=== PATIENT | female | born 1960 | race Caucasian/White ===

== ENCOUNTER → 2019-08-10 | Outpatient (CLI) | payer OTHER | LOC: MRI 08:37 | DX: N83.201 Unspecified ovarian cyst, right side (principal); N83.202 Unspecified ovarian cyst, left side; K76.89 Other specified diseases of liver; N28.1 Cyst of kidney, acquired; R16.1 Splenomegaly, not elsewhere classified; N26.1 Atrophy of kidney (terminal) ==

== ENCOUNTER 2019-10-25 01:04 | Inpatient (IN) | payer OTHER ==
[~2019-10-25] VITALS: Ht 177.8 cm; Wt 86.2 kg
[2019-10-25] VITALS (33 sets, daily range): BP systolic 105–141; BP diastolic 42–62
[2019-10-25] MEDS ORDERED: LIPITOR80 MG PO (01:23)
[2019-10-25] MEDS ORDERED: NEURONTIN300 MG PO (01:24)
[2019-10-25] MEDS ORDERED: COZAAR 25 MG TA25 M2 PO (01:24)
[2019-10-25] MEDS ORDERED: CLONAZEPAM 0.50.5 M1 PO (01:24)
[2019-10-25] MEDS ORDERED: TRAZODONE HCL100 MG PO (01:25)
[2019-10-25] MEDS ORDERED: INDAPAMIDE2.5 MG PO (01:25)
[2019-10-25] MEDS ORDERED: SEROQUEL300 MG PO (01:26)
[2019-10-25] MEDS ORDERED: OXYBUTYNIN 5 MG5 M2 PO (01:27)
[2019-10-25] MEDS ORDERED: AMARYL4 MG PO (01:27)
[2019-10-25] MEDS ORDERED: TIROSINT88 MCG PO (01:28)
[2019-10-25] MEDS ORDERED: PANTOPRAZOLE SO40 M1 PO (01:28)
[2019-10-25] MEDS ORDERED: METFORMIN HCL500 M3 PO (01:28)
[2019-10-25] MEDS ORDERED: KLOR-CON M2020 MEQ PO (01:29)
[2019-10-25] MEDS ORDERED: ASA81BEC PO (01:29)
[2019-10-25] MEDS ORDERED: ABILIFY 5 MG TAB5 MG PO (01:29)
[2019-10-25] MEDS ORDERED: TRIPLE OMEGA C400 MG PO (01:30)
[2019-10-25] MEDS ORDERED: TIZANIDINE HCL4 M1 PO (01:30)
[2019-10-25] MEDS ORDERED: SUPER THERAVIT1 EACH PO (01:30)
[2019-10-25 02:07] LABS: ABSOLUTE NEUTROPHILS 9.6 thou/uL (1.4-8.2); BASOPHILS 0.4 % (0.0-2.0); EOSINOPHILS 0.3 % (0.0-3.0); HEMATOCRIT 38.3 % (37.0-47.0); HEMOGLOBIN 12.4 gm/dL (12.0-15.0); LYMPHOCYTES 10.2 % (24.0-44.0); MCH 27.9 pg (26.0-34.0); MCHC 32.5 g/dL (28.0-37.0); MCV 85.9 fL (80.0-100.0); MONOCYTES 3.5 % (1.0-8.0); PLATELET COUNT 171 thou/uL (150-400); POLYS 85.6 % (36.0-66.0); RBC 4.46 mil/uL (4.20-5.00); RDW 13.3 % (10.5-14.5); WBC 11.2 thou/uL (4.0-11.0)
[2019-10-25 02:19] LABS: ALBUMIN 3.7 g/dL (3.4-5.0); ANION GAP 13 mmol/L (7-16); BUN 76 mg/dL (7-18); CALCIUM 9.4 mg/dL (8.5-10.1); CHLORIDE 96 mmol/L (98-107); CO2 24 mmol/L (21-32); CREATININE 4.9 mg/dL (0.6-1.0); MAGNESIUM 1.9 mg/dL (1.8-2.4); SGOT 17 U/L (15-37); SGPT 17 U/L (30-65); SODIUM 133 mmol/L (136-145); TOTAL BILIRUBIN 0.5 mg/dL (<0.1-1.0); TOTAL PROTEIN 7.9 g/dL (6.4-8.2); TROPONIN-I <0.06 ng/mL (<0.06)
[2019-10-25 02:20] LABS: POTASSIUM 7.6 mmol/L (3.5-5.1)
[2019-10-25 02:21] LABS: GLUCOSE 29 mg/dL (74-106)
[2019-10-25 03:41] LABS: URINE BILIRUBIN NEGATIVE (Negative); URINE BLOOD NEGATIVE (Negative); URINE CLARITY CLEAR; URINE COLOR YELLOW; URINE GLUCOSE-RANDOM* NEGATIVE (Negative); URINE KETONES NEGATIVE (Negative); URINE NITRITE-REFLEX NEGATIVE (Negative); URINE PROTEIN (DIPSTICK) NEGATIVE (Negative); URINE UROBILINOGEN 0.2 E.U./dl (0.2-1.0)
[2019-10-25 03:42] LABS: URINE LEUKOCYTES-REFLEX 1+ (Negative)
[2019-10-25 03:46] LABS: SQUAMOUS 4-10 Moderate /LPF (0-3); URINE WBC-REFLEX 6-15 Few /HPF (0-5); WBC CLUMPS Moderate (None Seen)
[2019-10-25 03:47] LABS: BACTERIA-REFLEX 1-9 Few /HPF (None Seen); CRYSTALS None Seen /LPF (None Seen); HYALINE CASTS 0-3 Few /LPF (None Seen); MUCUS 0-3 Light strn/LPF (None Seen); URINE RBC 0-2 Rare /HPF (0-2)
--- NOTE | 2019-10-25 04:50 | NUR ---
Pt arrived ICU at this time. No s/sx of any distress indicates. She is being admit for Hyperkalemia, Hypoglycemia ,Weakness and EDNA. Denies of any CP or chest discomfort . SR with 1st degree AVB. BP stable. Last potassium was 8, will repeat lab again shortly. Hypoglycemic, continue D10 at 100 ml per hr. BS 90 mg/DL upon arrival. Hx obtained, assessment completed. Care plans are initiated, continue working toward goals.
--- NOTE | 2019-10-25 06:35 | NUR ---
CALL CONSULT TO ,AND ANSWEING SERVICE.
[2019-10-25 06:57] LABS: CALCIUM 9.3 mg/dL (8.5-10.1)
[2019-10-25 07:17] LABS: POTASSIUM 6.4 mmol/L (3.5-5.1)
[2019-10-25 08:21] LABS: CALCIUM 9.7 mg/dL (8.5-10.1)
[2019-10-25 08:35] LABS: POTASSIUM 6.3 mmol/L (3.5-5.1)
--- NOTE | 2019-10-25 10:03 | NUR ---
CONSULTED TO PLACE A CENTRAL LINE FOR A PATIENT NEEDING CRITICAL ACCESS IN THE ICU. ORDER OBTAINED AND CONSENT OBTAINED FROM THE SON AFTER DISCUSSING THE PROCEDURE WELL BENIFITS AND RISKS WITH THE PATIENT AND SON. THEY BOTH COMMUNICATED UNDERSTANDING. THE RIGHT JUGULAR VEIN WAS WIDLEY PATENT. A #6F TRIPLE LUMEN POWER INJECTABLE CENTRAL CATHETER WAS PLACED PER POLICY AFTER A BEDSIDE TIMEOUT WAS COMPLETED. THE LINE WAS 25CM AND ADVANCED WITHOUT DIFFICULTY. A STAT CHEST XRAY WAS ORDERED TO CONFIRM PLACEMENT.
[2019-10-25 11:24] LABS: URINE PROTEIN-RANDOM* 48.2 mg/dL (<11.9)
[2019-10-25 13:00] LABS: CALCIUM 8.9 mg/dL (8.5-10.1); CREATININE 5.1 mg/dL (0.6-1.0)
[2019-10-25 13:07] LABS: POTASSIUM 6.1 mmol/L (3.5-5.1)
--- NOTE | 2019-10-25 17:21 | NUR ---
INITIAL ASSESSMENT: Pt evaluated for d/c planning needs. Reviewed chart and spoke with nurse, pt and son. Pt is alert and oriented. Pt lives alone in senior apartment and was independent with ADL's prior to admission. Pt used walker or cane for ambulation. Pt has had [facility] after her hospitalization in June 2019. Pt is hopeful she will be able to return home on d/c from hospital. Will remain available to assist as needed.
--- NOTE | 2019-10-25 17:22 | EKG ---
[address] [place] [address] ELECTROCARDIOGRAM REPORT Name: ERIC RADER Room #: 240-P ADM IN M.R.#: [id number] Admission: 10/25/19 Attend Phys: Dalton Millan MD Discharge: Date of : 58 Report #: [id number] THIS REPORT FOR: //name// [facility] ED Test Date: 2019-10-25 Test Time: 02:04:11 Pat Name: ERIC RADER Department: Room: 240 Gender: F Optician: maikel abdi rn : 1960 Requested By: Sy Edmonds Order Number: [id number] MD: Mino Blanca Measurements Intervals Dixon Rate: 84 P: 40 ID: 202 QRS: -7 QRSD: 74 T: 15 QT: 349 QTc: 413 Interpretive Statements Sinus rhythm Borderline prolonged ID interval Low voltage, precordial leads No previous ECG available for comparison Electronically Signed On 10-25-2019 17:22:00 TEAM PHYSICIAN by Mino Blanca [email or web address] <ELECTRONICALLY SIGNED> By: Mino Blanca MD 10/25/19 1722 0204 3 Mino Blanca MD /SABINA
--- NOTE | 2019-10-25 19:15 | NUR ---
Report given to oncoming nurse. Pt alert and oriented. Continuous infusion of D10W at 40 ml/hr. Man, Fecal tube and central line placed this morning. Son here today and spoke with telephonic nurse case manager about potential needs at discharge.
[2019-10-26] VITALS (23 sets, daily range): BP systolic 90–131; BP diastolic 42–71
[2019-10-26 02:06] LABS: GLYCOHEMOGLOBIN (HGB A1C) 5.1 % (4.8-5.6)
[2019-10-26 04:41] LABS: CALCIUM 8.6 mg/dL (8.5-10.1); CREATININE 4.6 mg/dL (0.6-1.0); HEMATOCRIT 30.4 % (37.0-47.0); MCH 28.7 pg (26.0-34.0); MCHC 33.7 g/dL (28.0-37.0); MCV 85.1 fL (80.0-100.0); RBC 3.57 mil/uL (4.20-5.00); RDW 13.5 % (10.5-14.5); WBC 8.1 thou/uL (4.0-11.0)
[2019-10-26 04:42] LABS: POTASSIUM 6.2 mmol/L (3.5-5.1)
[2019-10-26 04:45] LABS: HEMOGLOBIN 10.2 gm/dL (12.0-15.0)
--- NOTE | 2019-10-26 05:30 | NUR ---
AOX3. DENIES PAIN. VSS. AFEBRILE. HOURLY BP DURING THE NIGHT. URINE OUTPUT GREATER THAN 30CC/HR. CRITICAL LAB VALUES COMMUNICATE TO DR. CODY. PT PROGRESSING TOWARDS GOALS. WILL CONITINUE TO MONITOR.
--- NOTE | 2019-10-26 10:48 | HC ---
[facility] [place] [address] CONSULTATION Name: ERIC RADER Room #: 240-P ADM IN M.R.#: [id number] Admission: 10/25/19 Attend Phys: Dalton Millan MD Discharge: Date of : 58 Report #: [id number] THIS REPORT FOR: //name// CC: Shereen Millan DATE OF SERVICE: 10/25/2019 ENDOCRINE CONSULTATION NOTE CONSULTING PHYSICIAN: Dr. Cobb. REASON FOR CONSULTATION: Hypoglycemia, type 2 diabetes mellitus. HISTORY OF PRESENT ILLNESS: This is a 59-year-old female patient whose medical background is significant for type 2 diabetes mellitus, hypertension, hyperlipidemia as well as hypothyroidism, who presented to the ER after experiencing severe hypoglycemia that was measured at 29 mg/dL. Simultaneously, she was found to be severely hyperkalemic and with advanced renal insufficiency, which prompted her admission for further care and monitoring. The patient notes that she has been diabetic for many years and that she is maintained on a regimen of metformin 1000 mg twice a day in addition to glimepiride 4 mg that she notes she takes as 1/2 twice a day. The patient notes that her blood glucose control is typically adequate, but that she had noted a tendency for lower blood glucose values recently. While she does not recall having had severe hypoglycemia such as the incident she presented with, she does report that she had fallen down 3 times just yesterday. The patient is not known to have diabetic neuropathy or retinopathy and does not have a prior knowledge of existing chronic kidney disease. The patient is not aware of heart disease. The patient is hypothyroid and is maintained on levothyroxine 88 mcg daily. She is also hypertensive and maintained on losartan 25 mg daily. The patient is known to have hyperlipidemia and is maintained on atorvastatin 80 mg at bedtime. REVIEW OF SYSTEMS: CONSTITUTIONAL: Weakness, tiredness, poor appetite, but not fever or chills. No major changes in body weight. HEENT: Negative for sinus pain, ear drainage. PULMONARY: Occasional shortness of breath and cough, but no hemoptysis. CARDIAC: No chest pain, palpitations, syncope or presyncope, or lower extremity swelling. GASTROINTESTINAL: Noted for occasional abdominal discomfort, nausea, but no vomiting. [facility] [address] [place] [address] CONSULTATION Name: ERIC RADER Room #: 240-P [facility] IN M.R.#: [id number] Admission: 10/25/19 Attend Phys: Dalton Millan MD Discharge: Date of : 58 Report #: [id number] NEUROLOGY: She had fallen down multiple times. Describes what sounds like sudden collapse features, but without loss of consciousness or seizure activity. SKIN: Negative for rash, ulceration, itching or other major abnormalities. Otherwise, review of systems noncontributory unless mentioned in HPI. PAST MEDICAL HISTORY: 1. Type 2 diabetes mellitus. 2. Hypertension. 3. Hyperlipidemia. 4. Hypothyroidism. 5. GERD. 6. Neuropathy. 7. Depression. 8. Anxiety. 9. Overactive bladder. OUTPATIENT MEDICATIONS: Include metformin 1000 mg twice a day, glimepiride 2 mg twice a day, atorvastatin 80 mg at bedtime, losartan 25 mg daily, clonazepam 1 tab t.i.d. p.r.n., gabapentin 300 mg t.i.d., indapamide 2.5 mg daily, trazodone 400 mg at bedtime, Seroquel 300 mg q.i.d., oxybutynin 5 mg daily, levothyroxine 88 mcg daily, pantoprazole 40 mg daily, Abilify 5 mg daily, aspirin 81 mg daily, KCl 20 mEq daily, multivitamin daily. ALLERGIES: SHE IS ALLERGIC TO LISINOPRIL, PIOGLITAZONE, AND CONTRAST DYE. FAMILY HISTORY: Noncontributory. SOCIAL HISTORY: The patient lives at an assisted living facility. Smokes half a pack to a pack per day. Denies use of alcohol. Smokes marijuana occasionally. Apparently lives at an assisted living residence. PHYSICAL EXAMINATION: GENERAL: female patient who is not in apparent pain or distress. VITAL SIGNS: Blood pressure is 105/45 mmHg, heart rate is 83 beats per minute, respirations 16 per minute, temperature 36.8 degrees Celsius. CONSTITUTIONAL: The patient appears comfortable not in apparent distress. HEENT: Anicteric sclerae. Intact extraocular motions. NECK: Supple, without JVD, carotid bruits or lymphadenopathy. I do not appreciate thyromegaly. CHEST: Noted for moderate air entry bilaterally with scattered rales, rhonchi. HEART: Regular rate and rhythm without murmurs or gallops. ABDOMEN: Soft and lax without tenderness or organomegaly. She has active bowel sounds. EXTREMITIES: Lower extremity exam is noted for trace ankle edema bilaterally. No skin breaks or ulcerations. Pedal pulses are appreciated. NEUROLOGIC: Awake, alert and oriented to time, place and person. The remainder [facility] [address] [place] [address] CONSULTATION Name: ERIC RADER Room #: 240-P ADM IN Wilver.#: [id number] Admission: 10/25/19 Attend Phys: Dalton Millan MD Discharge: Date of : 58 Report #: [id number] of her examination is noted for diminished sensory perception over both lower extremities. PSYCHIATRIC: Interactive, appropriate. Normal mood and affect. Normal thought process. LABORATORY RESULTS: Blood glucose on arrival was 23 mg/dL and has since got as high as 113 mg/dL most recently was at 78 mg/dL. Otherwise, sodium 134, potassium 6.3, was 8 on arrival, chloride 96, CO2 of 23, anion gap 15, BUN 75, creatinine 5, AST 17, total bilirubin 0.5, calcium 9.7, magnesium 1.9, alkaline phosphatase 61, ALT 17, total protein 7.9, albumin 3.7, EGFR 9. Troponin is negative. BNP 3834. White blood count 11.2, hemoglobin 12.4, hematocrit 38.3, platelets 171. TSH is 1.066. ASSESSMENT AND PLAN: 1. Hypoglycemia. The patient presented with severe hypoglycemia, which was documented at 23 mg/dL. There is reason to believe that she had more frequent issues with hypoglycemia over the past few weeks. This level of severity is indeed concerning for neurological as well as cardiovascular outcome. The patient and her son were counseled at length about the necessity of avoiding similar occurrences in the future and about adjusting her regimen to where this can be achieved. The patient is currently receiving support with dextrose 10 at 40 mL an hour and has shown some stability. I have given instructions to maintain this level of support until she achieves an hourly blood glucose value of 180 mg/dL for 2 consecutive hours after which the D10 at 40 mL an hour can be stopped. I also instructed the nursing staff to measure blood glucose afterwards and ensure that she remains over 100 mg/dL with no extra support, so as to resume it if she were to fall below that. Again, these instructions were discussed with the nursing staff at length. Going forward, the patient would certainly be safer to completely avoid glimepiride, which would be discontinued going forward. 2. Type 2 diabetes mellitus. The patient reports a reasonable level of control. Nonetheless, she has several manifestations of long-term diabetic complications. I will obtain a hemoglobin A1c to assess her current outlook. With the development of severe hypoglycemia as well as the new issue of advanced kidney disease, the patient is not a candidate for glimepiride nor metformin. As we go forward and get more clarity on her therapeutic needs, definitive outpatient therapeutic recommendations will be made that are both effective and safe for this patient. 3. Hypothyroidism. The patient is maintained on levothyroxine 88 mcg daily. Her measured TSH of 1.06 reflex an adequate level of control on this regimen, she is to continue with the same. 4. Hyperkalemia. The patient arrived with severe hyperkalemia and that is life threatening. She has been evaluated, followed and managed by Dr. Amanda and her potassium has significantly improved since then down to 6.3. 5. Hypertension. The patient is maintained on losartan as an outpatient. This is currently on hold. Dr[place] [address] CONSULTATION Name: ERIC RADER Room #: 240-P [facility] IN M.R.#: [id number] Admission: 10/25/19 Attend Phys: Dalton Millan MD Discharge: Date of : 58 Report #: [id number] 6. Hyperlipidemia. The patient is maintained on atorvastatin therapy and tolerates it well. She will be maintained on the same for the time being. I certainly appreciate this consultation by Dr. Cobb. <ELECTRONICALLY SIGNED> By: Darci Gomez MD 10/26/19 1048 1226 2113 Darci Gomez MD /nt
--- NOTE | 2019-10-26 18:27 | NUR ---
ASSESSMENTS AND INTERVENTIONS DOCCUMENTED. PATIENT POTASSIUM ELEVATED THIS MORNING. DR AGUILA AWARE, ORDERS RECIEVED. PATIENT DCD OFF OF D10. PATIENT NO LONGER HYPOGLYCEMIC. DR. AGUILA PAGED ABOUT REDRAWING POTASSIUM LEVEL AFTER TREATMENT. NO NEW ORDERS. PATIENT RESTING AT THIS TIME. PATIENT MOVING TOWARDS GOAL EVIDENCE OF INCREASED BLOOD GLUCOSE LEVEL, IMPROVED RENAL LABS AND A DECREASE IN POTASSIUM FROM ADMISSION.
[2019-10-27] VITALS (9 sets, daily range): BP systolic 113–139; BP diastolic 45–109
--- NOTE | 2019-10-27 04:08 | NUR ---
NO OVERNIGHT EVENTS. PT. SLEPT THROUGH THE NIGHT. DENIES PAIN. ABLE TO SHIFT SELF UP AND DOWN IN BED. ASSESSMENTS AND VITAL SIGNS CHARTED. CONTINUE TO FOLLOW POC. WILL ASK IF PT. CAN TRANSFER TODAY. WILL CONTINUE TO MONITOR.
[2019-10-27 04:48] LABS: ALBUMIN 2.7 g/dL (3.4-5.0); CALCIUM 9.2 mg/dL (8.5-10.1); PHOSPHORUS 4.7 mg/dL (2.5-4.9); POTASSIUM 4.2 mmol/L (3.5-5.1)
[2019-10-27 04:53] LABS: HEMATOCRIT 30.2 % (37.0-47.0); HEMOGLOBIN 10.3 gm/dL (12.0-15.0); MCHC 33.9 g/dL (28.0-37.0); MCV 85.4 fL (80.0-100.0); RBC 3.54 mil/uL (4.20-5.00); RDW 13.4 % (10.5-14.5); WBC 7.6 thou/uL (4.0-11.0)
--- NOTE | 2019-10-27 15:00 | NUR ---
VASCULAR ACCESS NURSE ROUNDING. DRG LOOSE AND PULLING ON NECK. DRG CHG. DISCHARGE TO MED SURG ORDERS NOTED- RECOMMEND ORDERS TO D/C CENTRAL LINE AND PLACE PERIPHERAL. THE PATIENT AGREES
--- NOTE | 2019-10-27 16:18 | NUR ---
TRANSFER TO ROOM 457 REPORT GIVEN TO CATHY TO ASSUME NURSING CARE. NO ISSUES OR CONCERNS NOTED. TAKEN UP WITH ALL BELONGING AND CHART AND MEDS TO UNIT.
--- NOTE | 2019-10-27 18:42 | NUR ---
ASSUMED CARE OF PATIENT APPROX. 1600. VSS, DENIES PAIN. IV AND FERRER PATENT. PATIENT TOLERATING DIET. PATIENT A&OX3-4. NO SIGNS OF DISTRESS. WILL CONTINUE TO MONITOR.
[2019-10-27] MEDS ORDERED: SERTRALINE HCL100 MG PO ×2 (22:04→22:06)
[2019-10-28 05:17] LABS: HEMATOCRIT 32.2 % (37.0-47.0); HEMOGLOBIN 10.9 gm/dL (12.0-15.0); MCH 28.9 pg (26.0-34.0); MCHC 33.8 g/dL (28.0-37.0); MCV 85.4 fL (80.0-100.0); RBC 3.77 mil/uL (4.20-5.00); RDW 13.3 % (10.5-14.5); WBC 9.2 thou/uL (4.0-11.0)
[2019-10-28 05:27] LABS: CALCIUM 9.8 mg/dL (8.5-10.1); CREATININE 2.2 mg/dL (0.6-1.0); PHOSPHORUS 4.3 mg/dL (2.5-4.9); POTASSIUM 3.6 mmol/L (3.5-5.1)
--- NOTE | 2019-10-28 07:45 | NUR ---
progress pt upset at beginniing of shift yelling about her psychiatric meds were never ordered reviewed home meds list with pt updated and notified roman Parkinson ORDER CHECKER PACKER PROCESSER who ordered needed medications pt took them and apologized for her yelling I assured her it was ok and that I was not offended pt felt bad all night I just reassured her all was fine and she settled down and slept for awhile. up with sba ambulates to br nuñez in place draining large amount of urine. continue to monitor.
[2019-10-28 07:55] VITALS: BP 150/60
--- NOTE | 2019-10-28 18:54 | NUR ---
A/O, calm and pleasant; PICC line off; patient asked to get nuñez catheter off, Dr. Millan paged, no response, patient agreed to talked about it with Dr. Millan tomorrow. afebrile.
[2019-10-28 19:09] VITALS: BP 148/52
[2019-10-29 06:30] LABS: ALBUMIN 2.9 g/dL (3.4-5.0); CALCIUM 9.5 mg/dL (8.5-10.1); CREATININE 1.7 mg/dL (0.6-1.0); PHOSPHORUS 4.8 mg/dL (2.5-4.9); POTASSIUM 3.4 mmol/L (3.5-5.1)
--- NOTE | 2019-10-29 06:41 | NUR ---
PROGRESS PT A/O X4 DENIES PAIN. UP WITH SBA FERRER DRAINING LARGE AMOUNTS OF URINE. IVF'S INFUSING ORDERED. PT MOOD IS MUCH IMPROVED. QUESTIONING IF FERRER AND IVF'S ARE STILL NECESSARY i ADVISED TO ASK THE PHYSICIAN WHEN HE ROUNDS. CONTINUE POC.
[2019-10-29 08:00] VITALS: BP 144/58
[2019-10-29] MEDS ORDERED: LANTUS SUBQ (14:22)
[2019-10-29] MEDS ORDERED: TRADJENTA5 MG PO (14:22)
[2019-10-29] MEDS ORDERED: KEFLEX500 M2 PO (14:23)
[2019-10-29 15:00] VITALS: BP 140/49
[2019-10-29 15:08] VITALS: BP 144/58
--- NOTE | 2019-10-31 08:59 | HC ---
[facility] [place] [address] CONSULTATION Name: ERIC RADER Room #: 457-P [facility] IN [place]#: [id number] Admission: 10/25/19 Attend Phys: Dalton Millan MD Discharge: 10/29/19 Date of : 58 Report #: [id number] THIS REPORT FOR: //name// CC: Shereen Millan REASON FOR CONSULTATION: Acute kidney injury and electrolyte problems. REASON FOR PRESENTATION: Weakness and falls. HISTORY OF PRESENT ILLNESS: A 59-year-old with a history of diabetes mellitus who is maintained on metformin and glimepiride. She is also known to have hypothyroidism, hypertension. I am seeing her from the Nephrology perspective due to her presentation with an acute kidney injury, elevated creatinine, hyperkalemia. The patient had been having major issues with weakness in the last few days. This was associated with repeated falls. She continues to have those issues. She called paramedics and was found to be hypoglycemic. She was brought to the hospital for further evaluation and management. On presentation to the Emergency Room, she was found to be hyperkalemic, hyponatremic. She is maintained on metformin, glimepiride, potassium supplementation at home. She denies any prior knowledge of kidney problems in the past. She denies nonsteroidal anti-inflammatory medications. PAST MEDICAL HISTORY: 1. Hypertension. 2. Diabetes mellitus. 3. Hypothyroidism. 4. Hyperlipidemia. 5. Recent hysterectomy and I am not really sure how accurate is that. 6. Bipolar disorder. 7. Overactive bladder. MEDICATIONS: 1. Atorvastatin. 2. Losartan. 3. Gabapentin. 4. Indapamide. 5. Glimepiride. 6. Levothyroxine. 7. Metformin. 8. Potassium. FAMILY HISTORY: Hypertension and diabetes mellitus. ALLERGIES: LISINOPRIL, DYE and PIOGLITAZONE. REVIEW OF SYSTEMS: [facility] [address] [place] [address] CONSULTATION Name: ERIC RADER Room #: 457-P DIS IN Prudencio.#: [id number] Admission: 10/25/19 Attend Phys: Dalton Millan MD Discharge: 10/29/19 Date of : 58 Report #: [id number] GENERAL: Significant for weakness and repeated falls. CARDIOVASCULAR: No chest pain or palpitation. PULMONARY: No cough or hemoptysis. GASTROINTESTINAL: Reduced oral intake. Recent diarrhea while in the hospital. GENITOURINARY: No frequency, no urgency. MUSCULOSKELETAL: Occasional myalgias. PHYSICAL EXAMINATION: GENERAL: She is alert, oriented. VITAL SIGNS: Blood pressure is 170/59, pulse rate is 85. HEAD AND NECK: No jugular venous distention. CHEST: Decreased air entry bilaterally, but no crackles. CARDIOVASCULAR: No rub. ABDOMEN: Soft with candidal infection in her skin folds below her abdominal wall. EXTREMITIES: Lower extremities, no edema. LABORATORY DATA: Reviewed. Sodium is 114 and this is down from 133. Potassium is 6.4, down from 8. Creatinine is still high at 5. Anion gap is pending, but was 17. Blood sugar is persistently low at 69 with no symptoms. CPK is normal. White blood cell count is 11.2. IMPRESSION AND PLAN: 1. Acute kidney injury, prerenal. 2. Severe hyperkalemia due to angiotensin receptor naty and potassium supplementation. 3. Anion gap acidosis due to metformin. 4. Persistent hypoglycemia because of oral hypoglycemic agent in the face of acute kidney injury. 5. Reformulate her intravenous fluid to address her sodium issues and her potassium issues. She had made significant bowel movements after receiving Kayexalate and her potassium has been trending down. I will repeat her labs at 11:00. 6. Back off the D10W given her significant hyponatremia. 7. Continue to hold losartan, indapamide, metformin, glimepiride, potassium supplementation. 8. Strict input and output. 9. Obtain an ultrasound of both kidneys. 10. Continue vigorous intravenous hydration. 11. Avoid nephrotoxins. <ELECTRONICALLY SIGNED> By: Joshua Amanda MD 10/31/19 0859 0826 0849 Joshua Amanda MD /nt
== END 2019-10-29 18:27 | disposition home or self-care (01) | DRG 637 ==
LOC: ER 01:04 → EROBS 03:01 → ICU 03:01 → EROBS 04:41 → ICU 04:46 → 4W 10-27 16:01
PROVIDERS: Emergency Medicine; Hospitalist; Internal Medicine; Nurse Practitioner Family; ADMIT Hospitalist
PROC: 02HV33Z Insertion of Infusion Device into Superior Vena Cava, Percutaneous Approach (ICD-10-PCS; principal; 2019-10-25)
DX: E11.649 Type 2 diabetes mellitus with hypoglycemia without coma (principal); E43 Unspecified severe protein-calorie malnutrition; E87.1 Hypo-osmolality and hyponatremia; E87.2 Acidosis; N17.0 Acute kidney failure with tubular necrosis; E87.5 Hyperkalemia; I10 Essential (primary) hypertension; K21.9 Gastro-esophageal reflux disease without esophagitis; E78.00 Pure hypercholesterolemia, unspecified; E03.9 Hypothyroidism, unspecified; E78.5 Hyperlipidemia, unspecified; G47.00 Insomnia, unspecified; E11.40 Type 2 diabetes mellitus with diabetic neuropathy, unspecified; F41.9 Anxiety disorder, unspecified; R29.6 Repeated falls; F31.9 Bipolar disorder, unspecified; F17.210 Nicotine dependence, cigarettes, uncomplicated; Z88.8 Allergy status to other drugs, medicaments and biological substances; Z91.041 Radiographic dye allergy status; Z72.89 Other problems related to lifestyle; Z90.710 Acquired absence of both cervix and uterus; Z83.3 Family history of diabetes mellitus; Z82.49 Family history of ischemic heart disease and other diseases of the circulatory system; Z79.899 Other long term (current) drug therapy; Z79.84 Long term (current) use of oral hypoglycemic drugs; Z79.82 Long term (current) use of aspirin; Z79.4 Long term (current) use of insulin; Z79.51 Long term (current) use of inhaled steroids
CPT/HCPCS: 10047; 10078

== ENCOUNTER → 2020-02-12 | Outpatient (CLI) | payer OTHER ==
[~2020-02-12] MED LIST: ABILIFY 5 MG TAB5 MG PO; AMARYL4 MG PO; ASA81BEC PO; CLONAZEPAM 0.50.5 M1 PO; COZAAR 25 MG TA25 M2 PO; INDAPAMIDE2.5 MG PO; KEFLEX500 M2 PO; KLOR-CON M2020 MEQ PO; LANTUS SUBQ; LIPITOR80 MG PO; METFORMIN HCL500 M3 PO; NEURONTIN300 MG PO; OXYBUTYNIN 5 MG5 M2 PO; PANTOPRAZOLE SO40 M1 PO; SEROQUEL300 MG PO; SERTRALINE HCL100 MG PO; SUPER THERAVIT1 EACH PO; TIROSINT88 MCG PO; TIZANIDINE HCL4 M1 PO; TRADJENTA5 MG PO; TRAZODONE HCL100 MG PO; TRIPLE OMEGA C400 MG PO
== END ==
LOC: HYPER 12:14
DX: T81.89XA Other complications of procedures, not elsewhere classified, initial encounter (principal); E11.621 Type 2 diabetes mellitus with foot ulcer; L97.522 Non-pressure chronic ulcer of other part of left foot with fat layer exposed; E11.42 Type 2 diabetes mellitus with diabetic polyneuropathy; R60.0 Localized edema; E78.5 Hyperlipidemia, unspecified; I10 Essential (primary) hypertension; E66.9 Obesity, unspecified; F32.9 Major depressive disorder, single episode, unspecified; F03.90 Unspecified dementia, unspecified severity, without behavioral disturbance, psychotic disturbance, mood disturbance, and anxiety; F17.290 Nicotine dependence, other tobacco product, uncomplicated; Z79.4 Long term (current) use of insulin; Z79.82 Long term (current) use of aspirin; Z91.81 History of falling; Z68.31 Body mass index [BMI] 31.0-31.9, adult; Y83.8 Other surgical procedures as the cause of abnormal reaction of the patient, or of later complication, without mention of misadventure at the time of the procedure; Y92.89 Other specified places as the place of occurrence of the external cause

== ENCOUNTER → 2020-02-19 | Outpatient (CLI) | payer OTHER | LOC: HYPER 09:16 | DX: T81.89XD Other complications of procedures, not elsewhere classified, subsequent encounter (principal); E11.621 Type 2 diabetes mellitus with foot ulcer; L97.522 Non-pressure chronic ulcer of other part of left foot with fat layer exposed; L84 Corns and callosities; R60.0 Localized edema; E11.42 Type 2 diabetes mellitus with diabetic polyneuropathy; E11.65 Type 2 diabetes mellitus with hyperglycemia; E07.89 Other specified disorders of thyroid; E78.5 Hyperlipidemia, unspecified; E66.01 Morbid (severe) obesity due to excess calories; I10 Essential (primary) hypertension; F03.90 Unspecified dementia, unspecified severity, without behavioral disturbance, psychotic disturbance, mood disturbance, and anxiety; F33.9 Major depressive disorder, recurrent, unspecified; F17.290 Nicotine dependence, other tobacco product, uncomplicated; F12.90 Cannabis use, unspecified, uncomplicated; Z79.4 Long term (current) use of insulin; Z68.31 Body mass index [BMI] 31.0-31.9, adult; Y83.8 Other surgical procedures as the cause of abnormal reaction of the patient, or of later complication, without mention of misadventure at the time of the procedure ==

== ENCOUNTER → 2020-02-26 | Outpatient (CLI) | payer OTHER | LOC: HYPER 09:04 | DX: T81.89XD Other complications of procedures, not elsewhere classified, subsequent encounter (principal); E11.621 Type 2 diabetes mellitus with foot ulcer; L97.522 Non-pressure chronic ulcer of other part of left foot with fat layer exposed; L84 Corns and callosities; R60.0 Localized edema; E11.42 Type 2 diabetes mellitus with diabetic polyneuropathy; E11.65 Type 2 diabetes mellitus with hyperglycemia; E66.01 Morbid (severe) obesity due to excess calories; E07.89 Other specified disorders of thyroid; E78.5 Hyperlipidemia, unspecified; I10 Essential (primary) hypertension; F03.90 Unspecified dementia, unspecified severity, without behavioral disturbance, psychotic disturbance, mood disturbance, and anxiety; F33.9 Major depressive disorder, recurrent, unspecified; F17.290 Nicotine dependence, other tobacco product, uncomplicated; F12.90 Cannabis use, unspecified, uncomplicated; Z79.4 Long term (current) use of insulin; Z68.31 Body mass index [BMI] 31.0-31.9, adult; Y83.8 Other surgical procedures as the cause of abnormal reaction of the patient, or of later complication, without mention of misadventure at the time of the procedure ==

== ENCOUNTER → 2020-03-11 | Outpatient (CLI) | payer OTHER | LOC: HYPER 09:17 | DX: E11.622 Type 2 diabetes mellitus with other skin ulcer (principal); L97.522 Non-pressure chronic ulcer of other part of left foot with fat layer exposed; T81.89XD Other complications of procedures, not elsewhere classified, subsequent encounter; S91.101D Unspecified open wound of right great toe without damage to nail, subsequent encounter; E11.65 Type 2 diabetes mellitus with hyperglycemia; E11.42 Type 2 diabetes mellitus with diabetic polyneuropathy; I10 Essential (primary) hypertension; R60.0 Localized edema; E07.9 Disorder of thyroid, unspecified; E78.5 Hyperlipidemia, unspecified; F03.90 Unspecified dementia, unspecified severity, without behavioral disturbance, psychotic disturbance, mood disturbance, and anxiety; F33.9 Major depressive disorder, recurrent, unspecified; E66.9 Obesity, unspecified; F17.290 Nicotine dependence, other tobacco product, uncomplicated; Z79.4 Long term (current) use of insulin; Z91.81 History of falling; Z68.31 Body mass index [BMI] 31.0-31.9, adult; X58.XXXD Exposure to other specified factors, subsequent encounter; Y83.8 Other surgical procedures as the cause of abnormal reaction of the patient, or of later complication, without mention of misadventure at the time of the procedure ==

== ENCOUNTER → 2020-04-01 | Outpatient (CLI) | payer OTHER | LOC: HYPER 09:30 | PROVIDERS: ATTEND Emergency Medicine | DX: T81.89XD Other complications of procedures, not elsewhere classified, subsequent encounter (principal); E11.621 Type 2 diabetes mellitus with foot ulcer; L97.522 Non-pressure chronic ulcer of other part of left foot with fat layer exposed; L84 Corns and callosities; R60.0 Localized edema; E11.42 Type 2 diabetes mellitus with diabetic polyneuropathy; E11.65 Type 2 diabetes mellitus with hyperglycemia; E78.5 Hyperlipidemia, unspecified; E66.9 Obesity, unspecified; E07.89 Other specified disorders of thyroid; I10 Essential (primary) hypertension; F33.9 Major depressive disorder, recurrent, unspecified; F17.290 Nicotine dependence, other tobacco product, uncomplicated; F12.90 Cannabis use, unspecified, uncomplicated; F03.90 Unspecified dementia, unspecified severity, without behavioral disturbance, psychotic disturbance, mood disturbance, and anxiety; Z79.4 Long term (current) use of insulin; Y83.8 Other surgical procedures as the cause of abnormal reaction of the patient, or of later complication, without mention of misadventure at the time of the procedure ==

== ENCOUNTER → 2020-04-15 | Outpatient (CLI) | payer OTHER | LOC: HYPER 06:21 | PROVIDERS: ATTEND Emergency Medicine | DX: T81.89XD Other complications of procedures, not elsewhere classified, subsequent encounter (principal); E11.621 Type 2 diabetes mellitus with foot ulcer; L97.522 Non-pressure chronic ulcer of other part of left foot with fat layer exposed; L84 Corns and callosities; E11.42 Type 2 diabetes mellitus with diabetic polyneuropathy; E11.65 Type 2 diabetes mellitus with hyperglycemia; E07.89 Other specified disorders of thyroid; E78.5 Hyperlipidemia, unspecified; E66.01 Morbid (severe) obesity due to excess calories; R60.0 Localized edema; I10 Essential (primary) hypertension; F03.90 Unspecified dementia, unspecified severity, without behavioral disturbance, psychotic disturbance, mood disturbance, and anxiety; F33.9 Major depressive disorder, recurrent, unspecified; F17.290 Nicotine dependence, other tobacco product, uncomplicated; Z79.4 Long term (current) use of insulin; Z68.31 Body mass index [BMI] 31.0-31.9, adult; Y83.8 Other surgical procedures as the cause of abnormal reaction of the patient, or of later complication, without mention of misadventure at the time of the procedure ==

== ENCOUNTER → 2020-04-29 | Outpatient (CLI) | payer OTHER | LOC: HYPER 08:49 | PROVIDERS: ATTEND Emergency Medicine | DX: T81.89XD Other complications of procedures, not elsewhere classified, subsequent encounter (principal); E11.621 Type 2 diabetes mellitus with foot ulcer; L97.522 Non-pressure chronic ulcer of other part of left foot with fat layer exposed; L84 Corns and callosities; R60.0 Localized edema; E11.42 Type 2 diabetes mellitus with diabetic polyneuropathy; E11.65 Type 2 diabetes mellitus with hyperglycemia; E66.01 Morbid (severe) obesity due to excess calories; E07.89 Other specified disorders of thyroid; E78.5 Hyperlipidemia, unspecified; I10 Essential (primary) hypertension; F33.9 Major depressive disorder, recurrent, unspecified; F17.290 Nicotine dependence, other tobacco product, uncomplicated; F03.90 Unspecified dementia, unspecified severity, without behavioral disturbance, psychotic disturbance, mood disturbance, and anxiety; Z79.4 Long term (current) use of insulin; Z68.31 Body mass index [BMI] 31.0-31.9, adult; Y83.8 Other surgical procedures as the cause of abnormal reaction of the patient, or of later complication, without mention of misadventure at the time of the procedure ==

== ENCOUNTER → 2020-05-13 | Outpatient (CLI) | payer OTHER | LOC: HYPER 08:58 | PROVIDERS: ATTEND Emergency Medicine | DX: T81.89XD Other complications of procedures, not elsewhere classified, subsequent encounter (principal); E11.621 Type 2 diabetes mellitus with foot ulcer; L97.522 Non-pressure chronic ulcer of other part of left foot with fat layer exposed; L84 Corns and callosities; R60.0 Localized edema; E11.42 Type 2 diabetes mellitus with diabetic polyneuropathy; E11.65 Type 2 diabetes mellitus with hyperglycemia; E07.89 Other specified disorders of thyroid; E66.01 Morbid (severe) obesity due to excess calories; E78.5 Hyperlipidemia, unspecified; I10 Essential (primary) hypertension; F03.90 Unspecified dementia, unspecified severity, without behavioral disturbance, psychotic disturbance, mood disturbance, and anxiety; F33.9 Major depressive disorder, recurrent, unspecified; F17.290 Nicotine dependence, other tobacco product, uncomplicated; F12.10 Cannabis abuse, uncomplicated; Z79.4 Long term (current) use of insulin; Z68.31 Body mass index [BMI] 31.0-31.9, adult; Y83.8 Other surgical procedures as the cause of abnormal reaction of the patient, or of later complication, without mention of misadventure at the time of the procedure ==

== ENCOUNTER → 2020-05-27 | Outpatient (CLI) | payer OTHER | LOC: HYPER 09:36 | PROVIDERS: ATTEND Emergency Medicine | DX: T81.89XD Other complications of procedures, not elsewhere classified, subsequent encounter (principal); E11.621 Type 2 diabetes mellitus with foot ulcer; L97.522 Non-pressure chronic ulcer of other part of left foot with fat layer exposed; E11.42 Type 2 diabetes mellitus with diabetic polyneuropathy; E11.65 Type 2 diabetes mellitus with hyperglycemia; L84 Corns and callosities; E78.5 Hyperlipidemia, unspecified; I10 Essential (primary) hypertension; E07.9 Disorder of thyroid, unspecified; E66.9 Obesity, unspecified; F33.9 Major depressive disorder, recurrent, unspecified; F03.90 Unspecified dementia, unspecified severity, without behavioral disturbance, psychotic disturbance, mood disturbance, and anxiety; F17.290 Nicotine dependence, other tobacco product, uncomplicated; Z68.31 Body mass index [BMI] 31.0-31.9, adult; Z79.4 Long term (current) use of insulin; Z91.81 History of falling; Z79.82 Long term (current) use of aspirin; Y83.8 Other surgical procedures as the cause of abnormal reaction of the patient, or of later complication, without mention of misadventure at the time of the procedure ==

== ENCOUNTER → 2020-06-17 | Outpatient (CLI) | payer OTHER | LOC: HYPER 09:16 | PROVIDERS: ATTEND Emergency Medicine | DX: T81.89XD Other complications of procedures, not elsewhere classified, subsequent encounter (principal); E11.621 Type 2 diabetes mellitus with foot ulcer; L97.522 Non-pressure chronic ulcer of other part of left foot with fat layer exposed; L84 Corns and callosities; R60.0 Localized edema; E66.01 Morbid (severe) obesity due to excess calories; E11.42 Type 2 diabetes mellitus with diabetic polyneuropathy; E11.65 Type 2 diabetes mellitus with hyperglycemia; F33.9 Major depressive disorder, recurrent, unspecified; F17.290 Nicotine dependence, other tobacco product, uncomplicated; F12.10 Cannabis abuse, uncomplicated; Z79.4 Long term (current) use of insulin; Z68.31 Body mass index [BMI] 31.0-31.9, adult; Y83.8 Other surgical procedures as the cause of abnormal reaction of the patient, or of later complication, without mention of misadventure at the time of the procedure ==

== ENCOUNTER → 2020-10-16 | Outpatient (CLI) | payer OTHER ==
[~2020-10-16] MED LIST changes: +ABILIFY 5 MG TAB5 M1; +ABILIFY 5 MG TAB5 M1 PO; +ALDACTONE25 MG PO; +AUGMENTIN 875-1 EACH PO; +BACTRIM DS TAB1 EACH PO; +CARVEDILOL12.5 MG PO; +CLONAZEPAM 1 MG1 M1 PO; +COZAAR 25 MG TA25 MG; +COZAAR 25MG TAB25 M1 PO; +CYMBALTA30 MG PO; +FEOSOL325 M1 PO; +GABAPENTIN600 M1 PO; +HUMALOG100 UNIT/2 SQ; +HYDROCODON-ACE1 EA12 PO; +IBUPROFEN 800800 M1; +JANUVIA100 MG PO; +LANTUS100 UNIT/M SUBQ; +LIPITOR40 MG PO; +MAGNESIUM250 M1 PO; +METFORMIN HCL1000 MG PO; +NAPROSYN500 MG PO; +NEURONTIN 300300 M1; +OXYBUTYNIN 5 MG5 M2; +PROTONIX40 M2 PO; +SILVADENE20 GM TP; +ST. JOSEPH ASPI81 MG PO; +SYNTHROID88 MC1 PO; +TOUJEO MAX300 UNIT/1 SUBQ; +TRADJENTA5 MG; +UNICOMPLEX M TA1 TA1 PO; +VITAMIN D2000 UNIT PO; +ZOLOFT 50 MG TA50 M1 PO; +ZOLOFT50 MG PO
== END ==
LOC: LAB 08:29
PROVIDERS: ATTEND Podiatrist Foot & Ankle Surgery
DX: Z01.812 Encounter for preprocedural laboratory examination (principal); Z20.828 Contact with and (suspected) exposure to other viral communicable diseases

== ENCOUNTER 2020-10-21 06:12 | Day surgery (SDC) | payer OTHER ==
[~2020-10-21] VITALS: Ht 180.3 cm; Wt 116.1 kg
[2020-10-21 07:19] LABS: HEMOGLOBIN 14.1 gm/dL (12.0-15.0); MCH 28.5 pg (26.0-34.0); MCHC 33.6 g/dL (28.0-37.0); MCV 84.9 fL (80.0-100.0); RBC 4.95 mil/uL (4.20-5.00); RDW 13.8 % (10.5-14.5); WBC 9.8 thou/uL (4.0-11.0)
[2020-10-21 07:29] VITALS: BP 144/52
[2020-10-21 07:32] LABS: CALCIUM 9.9 mg/dL (8.5-10.1); CREATININE 1.2 mg/dL (0.6-1.0); POTASSIUM 4.5 mmol/L (3.5-5.1)
--- NOTE | 2020-10-27 19:07 | PATH ---
[facility] [address] [place] [address] PATHOLOGY RPT PROCEDURE Name: ERIC DANIELS Room #: DEP [facility] M.R.#: [id number] Admission: 10/21/20 Date of : 58 Discharge: 10/21/20 Report #: [id number] Path Case #: [id number] [facility] Accession Number: [id number] . 01 Material submitted: . hallux - LEFT HALLUX. Modifiers: left . 01 Clinical history: . AMPUTATION OF TOES CHRONIC DIABETIC ULCER W/ SURROUNDING VERRUCA . 02 Diagnosis: Toe, left hallux, amputation: - Skin and subcutaneous tissue with ulceration. - Surgical margins showing viable bone as well as skin. (IUV:pit 10/27/2020) QTP 10/27/2020 1426 Local . 02 Electronically signed: . Kiley Gallegos MD, Pathologist NPI- [id number] . 01 Gross description: . Received in formalin labeled "Eric Daniels, left hallux" is a first toe disarticulation measuring 4.2 x 3.4 x 2.8 cm. The skin is maynard-white with a plantar ulceration measuring 2.1 x 1.6 cm and is located 0.9 cm from the closest surgical resection margin. The nail is absent and the nail bed is exposed. The surgical resection margin is inked black and the specimen is sectioned longitudinally to reveal a maynard-white cut surface. [employer] longitudinal section of hallux with ulceration and margin submitted after decalcification in cassettes A1-A2.([facility]; 10/24/2020) GZA/GZA 10/24/2020 1252 Local . 02 Pathologist provided ICD-10: L98.499 . 02 CPT . 000621, 192577 Specimen Comment: A courtesy copy of this report has been sent to [phone] Specimen Comment: Report sent to Performed at: [address] [id number] MD El Lewis MD Phone: [phone] Performed at: [address] [id number] [address] [address] PATHOLOGY RPT PROCEDURE Name: ERIC DANIELS Room #: DEP [facility] Leopoldo#: [id number] Admission: 10/21/20 Date of : 58 Discharge: 10/21/20 Report #: [id number] Path Case #: [id number] MD Kiley Gallegos [place] Phone: [phone]
== END 2020-10-21 09:00 | disposition home or self-care (01) ==
LOC: OR → TBA 06:13 → OR 08:29
PROVIDERS: Anesthesiology; ATTEND Podiatrist Foot & Ankle Surgery
DX: E11.621 Type 2 diabetes mellitus with foot ulcer (principal); B07.9 Viral wart, unspecified; L97.529 Non-pressure chronic ulcer of other part of left foot with unspecified severity; I10 Essential (primary) hypertension; E78.00 Pure hypercholesterolemia, unspecified; E03.9 Hypothyroidism, unspecified; F41.9 Anxiety disorder, unspecified; F17.210 Nicotine dependence, cigarettes, uncomplicated; K21.9 Gastro-esophageal reflux disease without esophagitis; Z98.890 Other specified postprocedural states; Z79.899 Other long term (current) drug therapy; Z90.710 Acquired absence of both cervix and uterus; Z87.19 Personal history of other diseases of the digestive system
CPT/HCPCS: 50010; 50101; 50386; 56525; 57091; 57178

== ENCOUNTER 2020-10-24 10:45 | Emergency (ER) | payer OTHER ==
[~2020-10-24] VITALS: Ht 180.3 cm; Wt 113.4 kg
[2020-10-24 12:07] LABS: ABSOLUTE NEUTROPHILS 6.7 thou/uL (1.4-8.2); BASOPHILS 0.9 % (0.0-2.0); EOSINOPHILS 2.4 % (0.0-3.0); HEMATOCRIT 41.3 % (37.0-47.0); HEMOGLOBIN 13.8 gm/dL (12.0-15.0); LYMPHOCYTES 14.9 % (24.0-44.0); MCH 28.3 pg (26.0-34.0); MCHC 33.4 g/dL (28.0-37.0); MCV 84.6 fL (80.0-100.0); MONOCYTES 3.5 % (1.0-8.0); PLATELET COUNT 177 thou/uL (150-400); POLYS 78.3 % (36.0-66.0); RBC 4.89 mil/uL (4.20-5.00); RDW 13.7 % (10.5-14.5); WBC 8.5 thou/uL (4.0-11.0)
[2020-10-24 12:16] LABS: ANION GAP 5 mmol/L (7-16); BUN 26 mg/dL (7-18); CHLORIDE 99 mmol/L (98-107); CO2 32 mmol/L (21-32); CREATININE 1.2 mg/dL (0.6-1.0); GLUCOSE 453 mg/dL (74-106); POTASSIUM 4.5 mmol/L (3.5-5.1); SODIUM 136 mmol/L (136-145)
[2020-10-24 12:22] LABS: ALBUMIN 3.4 g/dL (3.4-5.0); DIRECT BILIRUBIN < 0.1 mg/dL (<0.1-0.2); SGOT 8 U/L (15-37); SGPT 17 U/L (14-59); TOTAL BILIRUBIN 0.4 mg/dL (0.2-1.0); TOTAL PROTEIN 8.3 g/dL (6.4-8.2)
[2020-10-24 13:13] LABS: URINE BILIRUBIN NEGATIVE (Negative); URINE BLOOD 1+ (Negative); URINE CLARITY SL CLOUDY; URINE COLOR YELLOW; URINE GLUCOSE-RANDOM* 3+ (Negative); URINE KETONES NEGATIVE (Negative); URINE LEUKOCYTES-REFLEX 1+ (Negative); URINE NITRITE-REFLEX NEGATIVE (Negative); URINE PROTEIN (DIPSTICK) NEGATIVE (Negative); URINE SPECIFIC GRAVITY 1.015 (1.005-1.035); URINE UROBILINOGEN 0.2 E.U./dl (0.2-1.0)
[2020-10-24 13:32] LABS: CASTS None Seen /LPF (None Seen); SQUAMOUS 4-10 Moderate /LPF (0-3); URINE RBC 3-10 Few /HPF (0-2); URINE WBC-REFLEX 6-15 Few /HPF (0-5)
[2020-10-24 13:33] LABS: CRYSTALS None Seen /LPF (None Seen); YEAST-REFLEX Present (None Seen)
[2020-10-24 15:00] VITALS: BP 148/74
== END 2020-10-24 15:00 | disposition home or self-care (01) ==
LOC: ER 10:45
PROVIDERS: Emergency Medicine
DX: E11.65 Type 2 diabetes mellitus with hyperglycemia (principal); F17.210 Nicotine dependence, cigarettes, uncomplicated; I10 Essential (primary) hypertension; E78.00 Pure hypercholesterolemia, unspecified; E03.9 Hypothyroidism, unspecified; K21.9 Gastro-esophageal reflux disease without esophagitis; Z91.041 Radiographic dye allergy status; Z88.8 Allergy status to other drugs, medicaments and biological substances; Z79.899 Other long term (current) drug therapy; Z79.4 Long term (current) use of insulin; Z79.82 Long term (current) use of aspirin; Z90.710 Acquired absence of both cervix and uterus

== ENCOUNTER → 2021-05-07 | Outpatient (CLI) | payer OTHER | LOC: BC 10:00 | PROVIDERS: ATTEND Family Medicine | DX: Z12.31 Encounter for screening mammogram for malignant neoplasm of breast (principal); N63.11 Unspecified lump in the right breast, upper outer quadrant ==

== ENCOUNTER → 2021-05-15 | Outpatient (CLI) | payer OTHER ==
--- NOTE | 2021-05-21 08:08 | PATH ---
[facility] [place] [address] PATHOLOGY RPT PROCEDURE Name: LISA DANIELS Room #: REG [facility].#: [id number] Admission: 05/15/21 Date of : 58 Discharge: Report #: [id number] Path Case #: [id number] [facility] Accession Number: [id number] . 01 Material submitted: . PART A: breast - RIGHT BREAST MASS AT 2:00 13CM. Modifiers: right PART B: breast - RIGHT BREAST MASS AT 9:00 13CM. Modifiers: right PART C: breast - RIGHT BREAST MASS AT 9:30 13CM. Modifiers: right . 02 Diagnosis: A. Breast, right breast 2:00 13 cm from nipple, needle core biopsy: - INVASIVE DUCTAL CARCINOMA WITH MICROPAPILLARY FEATURES [place] GRADE II/III, MEASURING 1.2 CM IN GREATEST DIMENSION IN CONTIGUOUS LENGTH. - MICROCALCIFICATIONS IDENTIFIED IN ASSOCIATION WITH INVASIVE CARCINOMA AND FOCAL NECROSIS. - FOCAL PERINEURAL INVASION IDENTIFIED. . B. Breast, right breast 9:00 13 cm from nipple, needle core biopsy: - INVASIVE DUCTAL CARCINOMA WITH FOCAL MICROPAPILLARY FEATURES GARLAND GRADE II/III, MEASURING 0.9 CM IN GREATEST DIMENSION IN CONTIGUOUS LENGTH. . C. Breast, right breast 9:30 13 cm from nipple, needle core biopsy: - INVASIVE DUCTAL CARCINOMA GARLAND GRADE II/III, MEASURING 0.8 CM IN GREATEST DIMENSION IN A SINGLE CORE IN CONTIGUOUS LENGTH. - FOCAL DUCTAL CARCINOMA IN SITU, CRIBRIFORM-TYPE AND INTERMEDIATE NUCLEAR GRADE. (IUV/db; 05/18/2021) LBQ 05/18/2021 1513 Local . 02 Comment: Specimen type: Needle core biopsy Tumor site: Right breast 2:00 13 cm, 9:00 13 cm, 9:30 13 cm Tumor quantitation: 1.2 cm, 0.9 cm and 0.8 cm respectively Histologic type: Invasive ductal carcinoma Histologic grade: [place] Grade II Tubules, nuclei and mitoses: 3, 2 and 1 respectively LVSI: Not identified Microcalcifications: Identified in association with invasive ductal carcinoma as well as focal necrosis Markers: ER, ME, Her-2/tiffany and Ki-67 Blocks: A2 and C1 . The tumor is noted to have micropapillary features predominantly in the right breast 2:00, 13 cm (part A) as opposed to right breast 9:30, 13 cm (part C). Blocks A2 and C1 are both sent for the breast prognostic markers in order to account for tumor heterogeneity. An addendum will be issued subsequent to receiving the same. [address] [address] PATHOLOGY RPT PROCEDURE Name: LISA DANIELS Room #: REG [facility] Pettit.#: [id number] Admission: 05/15/21 Date of : 58 Discharge: Report #: [id number] Path Case #: [id number] . Seismic Engineer focus was co-reviewed by Dr. Jessica Biggs who concurs with the diagnosis on 05/18/2021. . Findings of this case are telephoned to Ms. Preciado in our [facility] at 11:14 a.m. on 05/18/2021. (IUV/db; 05/18/2021) . 02 Addendum: . Special studies report received from [facility], [address] [place] [address], [facility] [address], [place], [address], on case [id number], labeled with their number [id number], dated 05/20/2021. . Breast/Prognostic Marker Analysis . Specimen Site: Right Breast, 2:00 (Biopsy), Invasive Ductal Carcinoma with Micropapillary Features Specimen ID #: [id number] . ER (Estrogen Receptor) Positive Percent: 95.00% Analysis: Manual Staining Intensity: Strong Internal Control: Not Present . ME (Progesterone Receptor) Positive Percent: 90.00% Analysis: Manual Staining Intensity: Strong Internal Control: Not Present . HER2 Negative Score: 1+ Analysis: Manual . Ki-67 Borderline Proliferation Percent: 15.00% Analysis: Manual . . . Specimen Site: Right Breast, 9:30 (Biopsy), Invasive Ductal Carcinoma Specimen ID #: [id number] . [facility] [address] [place] [address] PATHOLOGY RPT PROCEDURE Name: LISA DANIELS Room #: REG QUIN Mina#: [id number] Admission: 05/15/21 Date of : 58 Discharge: Report #: [id number] Path Case #: [id number] ER (Estrogen Receptor) Positive Percent: 95.00% Analysis: Manual Staining Intensity: Moderate to Strong Internal Control: Present and Positive . ME (Progesterone Receptor) Positive Percent: 95.00% Analysis: Manual Staining Intensity: Strong Internal Control: Present and Positive . HER2 Negative Score: 0 Analysis: Manual . Ki-67 Low Proliferation Percent: 5.00% Analysis: Manual . Time to Fixation (Cold Ischemic Time): 2 minutes Duration of Fixation: A-10hrs 48minutes C-10hrs 28 minutes Type of Fixative: 10% Neutral Buffered Formalin . at [facility] [facility]. Demetris Nova M.D. Pathologist . Methodology: The HER2 Receptor protein expression is analyzed using the Martelle HER2 rabbit monoclonal antibody (clone [id number]). This assay is used for diagnostic determination of the HER2 protein over-expression in paraffin embedded, formalin fixed breast cancer tissue on the Martelle Benchmark. The specimen is processed using a secondary antibody-HRP conjugate detection system. The membrane staining of the tumor is determined either by manual score or image analysis. This antibody is intended for in vitro diagnostic use. The score is reported as 0, 1+, 2+, or 3+. This test is used for clinical purposes. . A rabbit monoclonal antibody (clone SP1) that recognized the Estrogen Receptor is used to perform immunohistochemistry on routinely fixed (formalin) paraffin embedded tissue on the Martelle Benchmark. The specimen is processed using a secondary antibody-HRP conjugate detection system. [address] [address] PATHOLOGY RPT PROCEDURE Name: LISA DANIELS [id number] Admission: 05/15/21 Date of : 58 Discharge: Report #: [id number] Path Case #: [id number] The percentage of stained tumor nuclei is determined either manually or by image analysis. This test is intended for in vitro diagnostic use. This test is used for clinical purposes. . A rabbit monoclonal antibody (clone 1E2) that recognized the Progesterone Receptor is used to perform immunohistochemistry on routinely fixed (formalin) paraffin embedded tissue on the Martelle Benchmark. The specimen is processed using a secondary antibody-HRP conjugate detection system. The percentage of stained tumor nuclei is determined either manually or by image analysis. This test is intended for in vitro diagnostic use. This test is used for clinical purposes. . A rabbit monoclonal antibody (clone 30-9) that recognized Ki67 is used to perform immunohistochemistry on routinely fixed (formalin) paraffin embedded tissue on the Martelle Benchmark. The specimen is processed using a secondary antibody-HRP conjugate detection system. The percentage of stained tumor nuclei is determined either manually or by image analysis. This test is intended for in vitro diagnostic use. This test is used for clinical purposes. . Intended Use: This antibody is intended for in vitro diagnostic (IVD) use. HER2 (4B5) is a rabbit monoclonal antibody intended for the semi-quantitative detection of HER2 antigen in sections of formalin-fixed, paraffin embedded neoplastic tissue. . This antibody is intended for in vitro diagnostic (IVD) use. Estrogen Receptor (ER) (SP1) is a rabbit monoclonal antibody (IgG) that is intended for the qualitative detection of estrogen receptor (ER) antigen in sections of formalin-fixed, paraffin-embedded tissue. ER is a rabbit monoclonal antibody that recognizes human estrogen receptor alpha. . This antibody is intended for in vitro diagnostic (IVD) use. Progesterone Receptor (ME) (1E2) is a rabbit monoclonal antibody (IgG) that is intended for the qualitative detection of progesterone receptor (ME) antigen in sections of formalin fixed, paraffin embedded tissue. ME is a rabbit monoclonal antibody that recognizes the A and B forms of the human progesterone receptor. . This antibody is intended for in vitro diagnostic (IVD) use. Ki-67 (30-9) is a rabbit monoclonal antibody (IgG) directed against C-terminal portion of Ki-67 antigen. Staining for Ki-67 can be used to aid in assessing the proliferative activity of normal and neoplastic tissue. Ki-67 is a nuclear protein expressed in proliferating cells. During the cell cycle, the Ki-67 antigen is present in the G1, S, G2 and M phase but is absent in the G0 (quiescent phase). . Disclaimer: [address] [address] PATHOLOGY RPT PROCEDURE Name: LISA DANIELS [facility] [id number] Admission: 05/15/21 Date of : 58 Discharge: Report #: [id number] Path Case #: [id number] This Test was performed by [facility] [email or web address]. at [address], [address]. . [facility] is a business unit of [employer]. a wholly-owned subsidiary of [employer]. . This assay has not been validated on decalcified tissues. Results should be interpreted with caution if this specimen was decalcified given the likelihood of false negativity on decalcified specimens. . Any image(s) that accompany this report is/are a contact representative image(s) only and should not be used to render a diagnosis. . This interpretation is contingent on the specimen and the clinical information received. . For any special tests/stains performed, known positive cells or tissues are tested with each marker and examined to ensure positivity. Positive and negative internal controls, if present, react appropriately. . This analysis is an adjunct to the evaluation of the referring physician and does not represent a final diagnosis. . The immunohistochemistry tests performed at [facility]. were validated on tissue fixed in 10% neutral buffered formalin. The performance characteristics of the tests performed on tissue processed in other fixatives is not known. . HER2 testing at [facility] [facility] is performed in compliance with the 2018 updated ASCO/CAP Clinical Practice Guideline Focused Update. If the result is EQUIVOCAL (2+), it must be confirmed by an alternative assay such as FISH. . REFERENCE: Celina VALLEJO, Janusz CRAWFORD, Monica KH, et al: Human epidermal growth factor receptor 2 testing in breast cancer: ASCO/CAP clinical practice guideline focused update. Arch Pathol Lab Med. 2018;142:5274-4909. . HER2 and ER/ME ASCO/CAP guidelines require fixation in neutral buffered formalin for a minimum of 6 and a maximum of 72 hours. Fixation times less than 6 hours may not adequately preserve cell proteins. Fixation times longer than 72 hours may cause excess cross-linking of proteins reducing the antigen available for staining. Either scenario can cause reduced staining; hence false negative results are possible and should be considered for these situations if the HER2 IHC score is less than 3+ or ER or ME is negative (no staining or <1% positive). It is recommended that specimens fixed longer than 72 hours with HER2 IHC scores less than 3+ be [address] [address] PATHOLOGY RPT PROCEDURE Name: LISA DANIELS Room #: ROYER Mina#: [id number] Admission: 05/15/21 Date of : 58 Discharge: Report #: [id number] Path Case #: [id number] confirmed by HER2 FISH. The time from biopsy/excision to fixation in formalin (cold ischemic time) must be less than 1 hour. Time to fixation (cold ischemic time) greater than 1 hour should be interpreted with caution. HER2 testing, mainly HER2 by FISH, is particularly vulnerable since excessive cold ischemic time results in preferential loss of HER2 probe signals that may lead to false negative results. Use of unstained slides cut more than 6 weeks before analysis is not recommended. . ER/PgR testing at [facility] is performed in compliance with the ASCO/CAP Clinical Practice Guidelines. If the result for ER is less than 1% it is reported as Negative; if the ER result is 1-10% it is reported as Low Positive; if the ER result is greater than 10% it is reported as Positive. If the result for PgR is less than 1% it is reported as Negative; if the PgR result is equal to or greater than 1%, it is reported as Positive. . REFERENCE: Monica KH, Janusz HERNÁNDEZH, Vannessa M,et al. Estrogen and progesterone receptor testing in breast cancer. ASCO/CAP guideline update. Arch Pathol Lab Med. 2020;144:545-563. . . SCORE STAINING PATTERN IN TUMOR CELLS INTERPRETATION RESULTS 0 No staining observed or incomplete, faint membrane staining in less than or equal to 10% of tumor cells. Negative 1+ Incomplete, faint membrane staining in greater than 10% of tumor cells. Negative 2+ Weak to moderate complete membrane staining observed in greater than 10% of tumor cells. Equivocal* *Must be confirmed by alternative assay (IHC/FISH/Dual LUDIVINA) 3+ Intense, complete membrane staining in greater than 10% of tumor cells. Positive . A complete copy of the report is on file. . Professional and Technical services performed by [facility]. at [address], [place] [address]. . (IUV:amj 05/20/2021) . MBR/05/20/2021 Addendum Electronically Signed by Kiley Gallegos MD, Pathologist [address] [address] PATHOLOGY RPT PROCEDURE Name: LISA DANIELS Luca [facility] [id number] Admission: 05/15/21 Date of : 58 Discharge: Report #: [id number] Path Case #: [id number] . 02 Electronically signed: . Kiley Gallegos MD, Pathologist NPI- [id number] . 01 Gross description: . A. The specimen is received in formalin, labeled "Lisa Daniels, right breast 2:00, 13 cm". Received are three needle cores of fibrofatty tissue measuring 1.7 x 0.6 x 0.2 cm in aggregate dimensions. The specimen is submitted entirely in cassettes A1 through A3. The cold ischemic time is 2 minutes. The total formalin fixation time is 10 hours and 48 minutes. . B. The specimen is received in formalin, labeled "Lisa Daniels right breast 9:00, 13 cm". Received are four needle cores of fibrofatty tissue measuring 1.4 x 0.8 x 0.2 cm in aggregate dimensions. The specimen is submitted entirely in cassettes B1 through B3. The cold ischemic time is 3 minutes. The total formalin fixation time is 10 hours and 42 minutes. . C. The specimen is received in formalin, labeled "Lisa Daniels, right breast 9:30, 13 cm". Received are multiple needle cores of fibrofatty tissue measuring 1.8 x 1.0 x 0.2 cm in aggregate dimensions. The specimen is submitted entirely in cassettes C1 through C3. The cold ischemic time is 2 minutes. The total formalin fixation time is 10 hours and 28 minutes. ([facility]; 05/15/2021) QAC/QAC 05/15/2021 1701 Local . 02 Pathologist provided ICD-10: C50.911, N64.1, D05.11 . 02 CPT . 806170, 934460, 804871 Specimen Comment: A courtesy copy of this report has been sent to [phone] Specimen Comment: Report sent to Performed at: [address], [place], [place] [id number] MD El Lewis MD Phone: [phone] Performed at: [address] [id number] MD Kiley Gallegos MD Phone: [phone]
== END | disposition home or self-care (01) ==
LOC: ULTRA 08:57
PROVIDERS: ATTEND Family Medicine
DX: C50.911 Malignant neoplasm of unspecified site of right female breast (principal); R92.1 Mammographic calcification found on diagnostic imaging of breast; E11.40 Type 2 diabetes mellitus with diabetic neuropathy, unspecified; Z98.890 Other specified postprocedural states; Z79.4 Long term (current) use of insulin; Z79.899 Other long term (current) drug therapy; Z88.8 Allergy status to other drugs, medicaments and biological substances; Z91.040 Latex allergy status

== ENCOUNTER → 2021-08-07 | Outpatient (CLI) | payer OTHER ==
[~2021-08-07] MED LIST changes: +FENOFIBRATE145 M1 PO; +HUMALOG KW100 UNIT/1 SUBQ; +MELOXICAM15 MG PO; +TRULICITY1.5 MG/0.5 SUBQ; +ZOLOFT100 MG PO
== END | disposition home or self-care (01) ==
LOC: BC 05-18 12:27 → LAB 06:20
PROVIDERS: ATTEND Student in an Organized Health Care Education/Training Program
DX: Z01.812 Encounter for preprocedural laboratory examination (principal); Z20.822 Contact with and (suspected) exposure to COVID-19

== ENCOUNTER 2021-08-10 06:08 | Day surgery (SDC) | payer OTHER ==
[~2021-08-10] VITALS: Ht 180.3 cm; Wt 115.7 kg
--- NOTE | 2021-08-13 14:10 | PATH ---
[facility] [address] [place] [address] PATHOLOGY RPT PROCEDURE Name: ERIC DANIELS Room #: [place] [facility] [place].#: [id number] Admission: 08/10/21 Date of : 58 Discharge: 08/10/21 Report #: [id number] Path Case #: [id number] [facility] Accession Number: [id number] . 01 Material submitted: . toe - LEFT 2ND TOE. Modifiers: left, second . 01 Clinical history: . AMPUTATION TOES LEFT 2ND TOE CHRONIC DIABETIC ULCER WITH PROBABLE OSTEOMYELITIS . 02 Diagnosis: Toe, left second toe, amputation: - Skin and subcutaneous tissue with gangrenous necrosis and marked acute inflammation. - Acute inflammation involving underlying bone associated with acute and chronic osteomyelitis. - Margins showing viable cartilaginous cap. (IUV:pit; 08/12/2021) QTP 08/12/2021 1505 Local . 02 Electronically signed: . Kiley Gallegos MD, Pathologist NPI- [id number] . 01 Gross description: . The specimen is received in formalin, labeled "Eric Daniels, left second toe". Received is an amputated digit measuring 3.4 x 2.2 x 2.1 cm in greatest mentions. The bone margin is smooth and concave in appearance, consistent with disarticulation. The bone and soft tissue margins are inked black. The nail is present display in a light maynard and grossly unremarkable appearance. Adjacent to the nail, on the dorsal/medial aspect, there is an ill-defined, irregular in contour and white-maynard to light maynard lesion measuring 0.6 x 0.5 cm, which is 1.2 cm from the closest skin margin. A full-thickness longitudinal cross-section is submitted from proximal to distal aspects in cassettes A1 and A2, following decalcification. A customer loyalty representative cross-section through the lesion, with a slight amount of underlying bone is submitted in cassette A3, following decalcification. ([facility]; 08/11/2021) QAC/QAC 08/12/2021 1503 Local . 02 Pathologist provided ICD-10: I96, L98.9, M86.172 . 02 CPT . 676065, [id number] [place] [address] PATHOLOGY RPT PROCEDURE Name: ERIC DANIELS Room #: [place] [facility] [place].#: [id number] Admission: 08/10/21 Date of : 58 Discharge: 08/10/21 Report #: [id number] Path Case #: [id number] Specimen Comment: A courtesy copy of this report has been sent to [phone] Specimen Comment: [phone] Specimen Comment: Report sent to , DR PAYNE Performed at: [address], [place], [place] [id number] MD El Lewis MD Phone: [phone] Performed at: [address] [facility] [address] [id number] MD Kiley Gallegos MD Phone: [phone]
== END 2021-08-10 08:45 | disposition home or self-care (01) ==
LOC: OR 06:08 → TBA 08:09 → OR 08:45
PROVIDERS: ATTEND Podiatrist Foot & Ankle Surgery
DX: E11.621 Type 2 diabetes mellitus with foot ulcer (principal); E11.69 Type 2 diabetes mellitus with other specified complication; M86.172 Other acute osteomyelitis, left ankle and foot; M86.672 Other chronic osteomyelitis, left ankle and foot; L97.529 Non-pressure chronic ulcer of other part of left foot with unspecified severity; I96 Gangrene, not elsewhere classified; L98.9 Disorder of the skin and subcutaneous tissue, unspecified; I10 Essential (primary) hypertension; E78.00 Pure hypercholesterolemia, unspecified; F41.9 Anxiety disorder, unspecified; F32.9 Major depressive disorder, single episode, unspecified; K21.9 Gastro-esophageal reflux disease without esophagitis; E03.9 Hypothyroidism, unspecified; F17.210 Nicotine dependence, cigarettes, uncomplicated; Z98.890 Other specified postprocedural states; Z79.899 Other long term (current) drug therapy; Z85.3 Personal history of malignant neoplasm of breast; Z90.710 Acquired absence of both cervix and uterus; Z91.041 Radiographic dye allergy status; Z88.8 Allergy status to other drugs, medicaments and biological substances
CPT/HCPCS: 50010; 50101; 50386; 56525; 57091; 57178; 70005